=== PATIENT | female | born 1965 | race Caucasian/White ===

== ENCOUNTER 2018-03-15 19:02 | Emergency (ER) | payer OTHER ==
[2018-03-15 19:45] LABS: BASOPHILS # (AUTO) 0.1 10^3/uL (0.0-0.1); BASOPHILS % (AUTO) 1.1 %; EOSINOPHILS # (AUTO) 0.4 10^3/uL (0.0-0.7); EOSINOPHILS % (AUTO) 3.3 %; HGB - HEMOGLOBIN 14.8 g/dL (12.0-16.0); LYMPHOCYTES # (AUTO) 3.1 10^3/uL (1.5-3.5); LYMPHOCYTES % (AUTO) 24.6 %; MEAN CORPUSCULAR HEMOGLOBIN 29.9 pg (27.0-31.0); MEAN CORPUSCULAR HGB CONC 33.1 g/dL (32.0-36.0); MEAN CORPUSCULAR VOLUME 90.3 fL (81.0-99.0); MEAN PLATELET VOLUME 6.9 fL (7.9-10.8); MONOCYTES % (AUTO) 7.9 %; NEUTROPHILS % (AUTO) 63.1 %; PLT - PLATELET COUNT 310 10^3/uL (130-450); RED BLOOD COUNT 4.97 10^6/uL (4.20-5.40); RED CELL DISTRIBUTION WIDTH 13.5 % (12.0-15.0); WHITE BLOOD COUNT 12.7 x10^3/uL (4.8-10.8)
[2018-03-15 19:59] LABS: ALBUMIN 4.7 g/dL (3.2-5.5); ALBUMIN/GLOBULIN RATIO 1.4 (1.0-2.2); BILIRUBIN,TOTAL 0.4 mg/dL (0.2-1.0); CALCIUM 9.4 mg/dL (8.5-10.3); CREATININE 0.7 mg/dL (0.4-1.0); TOTAL PROTEIN 8.1 g/dL (6.7-8.2)
[2018-03-15] MEDS ORDERED: ALBUTEROL NEB 2.5 MG/3 ML INH STA (20:43)
--- NOTE | 2018-03-15 20:46 | ED Physician Documentation ---
History of Present Illness - Stated complaint Stated Complaint: CHEST TIGHTNING/WINDED - Chief complaint Chief Complaint: Cardiac - History obtained from History obtained from: Patient - History of Present Illness Timing: How many weeks ago (1) Pain level max: 0 Pain level now: 0 - Additonal information Additional information: Patient is a 52-year-old female presents to the emergency department with dyspnea for the past week. This has been intermittent, but constant for the past 12 hours or so. Worse with exertion and better with rest. Also states has mild chest tightness. No fevers. No cough. No rhinorrhea or congestion. No recent travel. No recent antibiotics. No recent surgery. No recent imm obilization Review of Systems Ten Systems: 10 systems reviewed and negative Constitutional: denies: Fever, Chills Ears: denies: Ear pain Nose: denies: Rhinorrhea / runny nose, Congestion Throat: denies: Sore throat Cardiac: denies: Pedal edema, Calf pain GI: denies: Abdominal Pain, Nausea, Vomiting, Diarrhea Skin: denies: Rash Musculoskeletal: denies: Neck pain, Back pain Neurologic: denies: Headache PD PAST MEDICAL HISTORY - Past Medical History Past Medical History: Yes Cardiovascular: Hypertension, High cholesterol Neuro: Peripheral neuropathy Other Past Medical History: spinal stimulator, stent to abd (R common iliac vein) - Past Surgical History /[employer]IC: Hysterectomy Cardiovascular: Vascular surgery - Present Medications Home Medications: Ambulatory Orders Medication Instructions Recorded Confirmed Albuterol Sulf [Ventolin Hfa 1 - 2 puffs INH Q4HR PRN #1 inhaler 03/15/18 Inhaler] Amlodipine Besylate 10 mg PO DAILY 03/15/18 Atorvastatin Calcium 20 mg PO DAILY 03/15/18 Baclofen 10 mg PO DAILY 03/15/18 Janument 03/15/18 Levothyroxine Sodium [Synthroid] 100 mcg PO DAILY 03/15/18 03/15/18 Lisinopril 5 mg PO DAILY 03/15/18 Neuropathic 03/15/18 Pantoprazole [Protonix] 40 mg PO DAILY 03/15/18 03/15/18 Pyridoxine HCl 50 mg PO DAILY 03/15/18 03/15/18 traMADol [Ultram] 50 mg PO PRN PRN 03/15/18 - Allergies Allergies/Adverse Reactions: Allergies Allergy/AdvReac Type Severity Reaction Status Date / Time acetaminophen Allergy Unknown Verified 12/11/18 20:44 [From Darvocet-N] amoxicillin Allergy Unknown Verified 03/15/18 20:44 ampicillin Allergy Unknown Verified 03/15/18 20:44 clindamycin Allergy Unknown Verified 03/15/18 20:44 erythromycin base Allergy Unknown Verified 03/15/18 20:44 nitrofurantoin Allergy Unknown Verified 03/15/18 20:44 [From Macrodantin] Penicillins Allergy Unknown Verified 03/15/18 20:44 propoxyphene Allergy Unknown Verified 03/15/18 20:44 [From Darvocet-N] Sulfa (Sulfonamide Allergy Unknown Verified 03/15/18 20:44 Antibiotics) tetracycline Allergy Unknown Verified 03/15/18 20:44 - Social History Does the pt smoke?: No Smoking Status: Former smoker Does the pt drink ETOH?: No Does the pt have substance abuse?: No - Immunizations Immunizations are current?: Yes PD ED PE NORMAL - Vitals Vital signs reviewed: Yes - General General: Alert and oriented X 3, No acute distress - HEENT HEENT: Moist mucous membranes - Neck Neck: Supple, no meningeal sign - Cardiac Cardiac: RRR, Strong equal pulses - Respiratory Respiratory: No respiratory distress, Other (Mildly diminished breath sounds bilaterally) - Abdomen Abdomen: Soft, Non tender, Non distended - Back Back: No spinal TTP - Derm Derm: Warm and dry - Extremities Extremities: No edema, No calf tenderness / cord - Neuro Neuro: Alert and oriented X 3 Results - Vitals Vitals: Vital Signs - 24 hr 03/15/18 03/15/18 03/15/18 19:23 20:11 21:06 Temperature 36.8 C Heart Rate 98 81 Respiratory 16 17 Rate Blood Pressure 138/84 H 140/90 H Blood Pressure 148/90 H [Right] O2 Saturation 98 97 03/15/18 03/15/18 03/15/18 21:32 22:12 22:30 Temperature Heart Rate 82 86 85 Respiratory 22 19 23 Rate Blood Pressure 111/48 L Blood Pressure [Right] O2 Saturation 97 Oxygen O2 Source Room air - EKG (time done) 1914 Rate: Rate (enter#) (90) Rhythm: NSR [place]: Normal Intervals: Normal [place] QRS: Normal Ischemia: Normal ST segments - Labs Labs: Laboratory Tests 03/15/18 03/15/18 03/15/18 19:37 19:37 19:37 WBC 12.7 H RBC 4.97 Hgb 14.8 Hct 44.9 MCV 90.3 MCH 29.9 MCHC 33.1 RDW 13.5 Plt Count 310 MPV 6.9 L Neut # (Auto) 8.0 H Lymph # (Auto) 3.1 Randolph # (Auto) 1.0 Eos # (Auto) 0.4 Baso # (Auto) 0.1 Absolute Nucleated RBC 0.00 Nucleated RBC % 0.0 Sodium 134 L Potassium 3.7 Chloride 102 Carbon Dioxide 24 Anion Gap 8.0 BUN 16 Creatinine 0.7 Estimated GFR (MDRD) 89 Glucose 176 H Calcium 9.4 Total Bilirubin 0.4 AST 36 ALT 58 Alkaline Phosphatase 76 Troponin I < 0.04 B-Natriuretic Peptide Total Protein 8.1 Albumin 4.7 Globulin 3.4 Albumin/Globulin Ratio 1.4 Lipase 31 03/15/18 19:37 WBC RBC Hgb Hct MCV MCH MCHC RDW Plt Count MPV Neut # (Auto) Lymph # (Auto) Randolph # (Auto) Eos # (Auto) Baso # (Auto) Absolute Nucleated RBC Nucleated RBC % Sodium Potassium Chloride Carbon Dioxide Anion Gap BUN Creatinine Estimated GFR (MDRD) Glucose Calcium Total Bilirubin AST ALT Alkaline Phosphatase Troponin I B-Natriuretic Peptide 26 Total Protein Albumin Globulin Albumin/Globulin Ratio Lipase - Rads (name of study) Chest x-ray Radiology: Prelim report reviewed, EMP read contemporaneously, See rad report (No acute abnormality) CT pulmonary angiogram Radiology: Prelim report reviewed, EMP read contemporaneously, See rad report (No pulmonary emboli) PD MEDICAL DECISION MAKING - ED course Complexity details: reviewed results, re-evaluated patient, considered differential, d/w patient, d/w family ED course: 52-year-old female with dyspnea of unclear etiology. Negative CT of the chest. No PE. No acute coronary syndrome. No CHF. She was given albuterol nebulizer and a DuoNeb treatment. This seemed to resolve her symptoms. She states that she did used to smoke when she was younger and had a nebulizer at that time but has not had to use anything since 2006. Will prescribe an inhaler for home and follow-up with her doctor. Patient counseled regarding signs and symptoms for which I believe and urgent re-evaluation would be necessary. Patient with good understanding of and agreement to plan and is comfortable going home at this time This document was made in part using voice recognition software. While efforts are made to proofread this document, sound alike and grammatical errors may occur. Departure - Departure Disposition: 01 Home, Self Care Clinical Impression: Dyspnea Qualifiers: Dyspnea type: shortness of breath Qualified Code(s): R06.02 - Shortness of breath Condition: Good Instructions: ED Dyspnea Shortness of Breath Follow-Up: Beverley Mason MD [Primary Care Provider] - Within 3 Days Prescriptions: Albuterol Sulf [Ventolin Hfa Inhaler] 1 - 2 puffs INH Q4HR PRN #1 inhaler PRN Reason: Shortness Of Air/Wheezing Comments: Use the albuterol as needed for difficulty breathing at home. Return if you worsen. Your laboratory tests, x-ray, CT scan and EKG do not reveal any acute abnormalities to explain your symptoms. Discharge Date/Time: 03/15/18 22:45
--- NOTE | 2018-03-15 20:55 | XRAY Report ---
Reason: soa/chest pressure Procedure Date: 03/15/2018 Accession Number: [id number] / [id number] Procedure: XR - Chest 1 View X-Ray CPT Code: 63356 FULL RESULT: EXAM: CHEST RADIOGRAPHY EXAM DATE: 03/15/2018 08:35 PM. CLINICAL HISTORY: Chest pressure and shortness of breath for about a week. Dizziness. COMPARISON: None. TECHNIQUE: 1 view. FINDINGS: Lungs/Pleura: No focal opacities evident. No pleural effusion. No pneumothorax. Mediastinum: Within exam limitations, the cardiomediastinal contour is normal. Other: No bony abnormality identified. IMPRESSION: Normal single view chest. [facility]
[2018-03-15] MEDS ORDERED: IOVERSOL 320 100 ML VIAL IVP ONE ×2 (21:10→21:54)
--- NOTE | 2018-03-15 21:56 | CT Report ---
Reason: dyspnea, worsening for past week. Procedure Date: 03/15/2018 Accession Number: [id number] / [id number] Procedure: CT - Chest Angio (PE) CPT Code: FULL RESULT: EXAM: CT ANGIOGRAM CHEST EXAM DATE: 03/15/2018 09:32 PM. CLINICAL HISTORY: Dyspnea, worsening for past week. COMPARISON: None. TECHNIQUE: Routine helical imaging was performed through the chest in the pulmonary arterial phase. IV Contrast: OPTI 320 80mL. Reconstructions: Coronal 3-D MIP reconstructions.Sagittal and coronal. In accordance with CT protocol optimization, one or more of the following dose reduction techniques were utilized for this exam: automated exposure control, adjustment of mA and/or KV based on patient size, or use of iterative reconstructive technique. FINDINGS: Pulmonary Arteries: Diagnostic quality: Suboptimal through the segmental arteries. Timing of contrast bolus limits assessment of segmental branch vessels. There is no evidence of central embolus. No right heart strain. Lungs/Pleura: No consolidation, nodules, or edema. No effusions or pneumothorax. Mediastinum: Normal heart size. There are coronary artery calcifications. No enlarged thoracic lymph nodes. Thoracic Aorta: Unremarkable. Upper Abdomen: The visualized portions of the upper abdominal organs demonstrate no acute abnormalities. There is a left adrenal adenoma. Other: None. IMPRESSION: 1. Study is limited for assessment of pulmonary embolus secondary to timing of contrast bolus. There is no evidence of large central embolus or right heart strain. Segmental branch vessels are inadequately opacified to exclude embolus. 2. Normal heart size. There are coronary artery calcifications. 3. There is no evidence of aortic dissection or aneurysm. 4. The lungs are clear. 5. There is a left adrenal adenoma. [facility]
[2018-03-15] MEDS ORDERED: IPRATROPIUM/ALBUTEROL 3 ML NEB INH STA (22:00)
[2018-03-15 22:13] VITALS: BP 111/48
== END 2018-03-15 22:45 | disposition home or self-care (01) ==
LOC: ED 19:02
DX: R06.02 Shortness of breath (principal); R07.89 Other chest pain; I10 Essential (primary) hypertension; Z87.891 Personal history of nicotine dependence
CPT/HCPCS: 36415; 71045; 71275; 80053; 83690; 83880; 84484; 85025; 93005; 94640; 99283; Q9967

== ENCOUNTER 2018-07-26 06:00 | Day surgery (SDC) | payer OTHER ==
[2018-07-26] MEDS ORDERED: LACTATED RINGERS 1,000 ML IV ONE (06:33)
--- NOTE | 2018-07-26 07:49 | ANESTHESIA ---
Pre-Anesthesia VS, & Labs - Diagnosis colon screening exam - Procedure colonoscopy Vital Signs: Temp Pulse Resp BP Pulse Ox 37.3 C 84 18 138/94 H 96 07/26/18 06:30 07/26/18 06:30 07/26/18 06:30 07/26/18 06:30 07/26/18 06:30 Height 5 ft 8 in Weight (kg) 111.13 kg Body Mass Index 35.4 - NPO >8 hours - Is Patient ?: No - Lab Results Current Lab Results: Laboratory Tests 07/26/18 06:43: POC Whole Bld Glucose 208 H Home Medications and Allergies Amlodipine Besylate 10 mg PO DAILY 03/15/18 Baclofen 10 mg PO DAILY PRN 03/15/18 Levothyroxine Sodium [Synthroid] 100 mcg PO DAILY 03/15/18 Lisinopril 5 mg PO DAILY 03/15/18 Pantoprazole [Protonix] 40 mg PO DAILY 03/15/18 traMADol [Ultram] 50 mg PO TID 03/15/18 Cetirizine HCl 10 mg PO DAILY PRN 05/06/18 Fluticasone/Salmeterol [Advair 100-50 Diskus] 1 each IH BID 05/06/18 Sertraline HCl [Zoloft] 100 mg PO DAILY 05/06/18 Sitagliptin Phos/Metformin HCl [Janumet 50-1,000 mg Tablet] 1 each PO BID 05/06/18 diphenhydrAMINE [Benadryl] 100 mg PO ONCE PRN 05/06/18 Allergies/Adverse Reactions: Allergies Allergy/AdvReac Type Severity Reaction Status Date / Time amoxicillin Allergy Hives Verified 05/06/18 10:45 ampicillin Allergy Hives Verified 05/06/18 10:45 clindamycin Allergy Hives Verified 05/06/18 10:45 erythromycin base Allergy Hives Verified 05/06/18 10:45 nitrofurantoin Allergy Hives Verified 05/06/18 10:45 [From Macrodantin] Penicillins Allergy Anaphylaxis Verified 05/06/18 10:45 propoxyphene Allergy Hives Verified 05/06/18 10:45 [From Darvocet-N] Sulfa (Sulfonamide Allergy Hives Verified 05/06/18 10:45 Antibiotics) tetracycline Allergy Hives Verified 02/01/19 10:45 Anes History & Medical History - Anesthetic History Anesthesia Complications: reports: No previous complications - Medical History Cardiovascular: reports: Hypertension, High cholesterol Pulmonary: reports: Other Gastrointestinal: reports: GERD, Other Urinary: reports: None Neuro: reports: Peripheral neuropathy Musculoskeletal: reports: Osteoarthritis, Fibromyalgia, Chronic back pain Endocrine/Autoimmune: reports: Type 2 diabetes, HyPOthyroidism Skin: reports: None Smoking Status: Former smoker - Surgical History Cardiothoracic: Vascular surgery Gynecologic: Hysterectomy Exam General: Other (patient sedated with 8mg versed and 200 mcg fentanyl prior to arrival. History obtained from EMR) Plan Anesthesia Type: MAC (Patient unable to tolerate procedure with conscious sedation. Assumed care for Monitored anesthesia care.) Consent for Procedure(s) Verified and Reviewed: Yes Code Status: Attempt Resuscitation ASA classification: 3-Severe systemic disease Is this case an emergency?: No
[2018-07-26] MEDS ORDERED: PROPOFOL 200 MG/20 ML VIAL IVP ONE (07:54)
[2018-07-26] MEDS ORDERED: MIDAZOLAM 2 MG/2 ML VIAL IVP ONE (08:00)
[2018-07-26] MEDS ORDERED: fentaNYL 250 MCG/5 ML VIAL IVP ONE (08:00)
[2018-07-26 08:32] VITALS: BP 135/88
--- NOTE | 2018-07-26 09:59 | PROCEDURE REPORT ---
DATE OF SERVICE: 07/26/2018 Physician: Jesus Simon MD PREOPERATIVE DIAGNOSIS: Screening. POSTOPERATIVE DIAGNOSIS: Normal colonoscopy. INDICATION FOR PROCEDURE: The patient is a 52-year-old woman presenting for her first screening colo noscopy. She did have one about 30 years ago; however. PROCEDURE IN DETAIL: The risks and benefits were explained to the patient, she agreed to the procedu re. She was taken to the operating room, given sedation. A timeout was performed and everyone in th e room agreed with the procedure. We inserted a well-lubricated colonoscope in the anal cavity and a dvanced into the cecum without much difficulty. The appendiceal orifice was identified. We slowly w ithdrew the colonoscope while insufflating. We inspected all mucosal surfaces on withdrawal, did not see any abnormalities. The scope was retroflexed at the anal verge, which showed slightly enlarged hemorrhoids internally. However, there are no other abnormalities on colonoscopy. The scope was the n withdrawn completely and the procedure terminated. The patient went to recovery in good condition. COMPLICATIONS: None. PLAN: To go home today and have repeat colonoscopy in 10 years. TD: 07/26/2018 08:30
== END 2018-07-26 06:01 | disposition home or self-care (01) ==
LOC: SDS 06:00
PROVIDERS: ATTEND Surgery
PROC: 0DJD8ZZ Inspection of Lower Intestinal Tract, Via Natural or Artificial Opening Endoscopic (ICD-10-PCS; principal; 2018-07-26 07:30)
DX: Z12.11 Encounter for screening for malignant neoplasm of colon (principal); I10 Essential (primary) hypertension; K21.9 Gastro-esophageal reflux disease without esophagitis; E78.00 Pure hypercholesterolemia, unspecified; E11.42 Type 2 diabetes mellitus with diabetic polyneuropathy; E03.9 Hypothyroidism, unspecified; Z87.891 Personal history of nicotine dependence
CPT/HCPCS: 45378; J3010; J7120

== ENCOUNTER 2018-09-30 08:27 | Outpatient (CLI) | payer OTHER ==
[2018-09-30] MEDS ORDERED: BUFFERED LIDOCAINE 10 ML SYRINGE ONE (08:39)
[2018-09-30] MEDS ORDERED: IOTHALAMATE MEGLUMINE 50 ML VIAL ONE (08:39)
--- NOTE | 2018-09-30 14:45 | CT Report ---
Reason: STRAIN OF MUSCLE AND TENDONS OF THE ROTATOR CUFF O Procedure Date: 09/30/2018 Accession Number: [id number] / [id number] Procedure: CT - UPPER EXTREMITY W - RT CPT Code: FULL RESULT: EXAM: RIGHT SHOULDER CT ARTHROGRAM WITH CONTRAST EXAM DATE: 09/30/2018 09:43 AM. CLINICAL HISTORY: Right shoulder pain. Strain of muscle and tendons of the rotator cuff. COMPARISON: UPPER EXTREMITY RIGHT W/ 09/30/2018 9:35 AM CHEST 1 VIEW 03/15/2018 8:24 PM. TECHNIQUE: Thin-section axial images were acquired of the shoulder after an arthrographic injection dictated under a separate exam. Post-processing: Oblique coronal and sagittal reformats. Other: None. In accordance with CT protocol optimization, one or more of the following dose reduction techniques were utilized for this exam: automated exposure control, adjustment of mA and/or KV based on patient size, or use of iterative reconstructive technique. FINDINGS: Bones: No fracture or bone lesion. Acromioclavicular Region: Minimal acromioclavicular joint osteoarthritis. Glenohumeral Joint: Mild glenohumeral osteoarthritis, with small osteophytes and mild subarticular sclerosis. Contrast has been injected into the subacromial and subscapular bursae. There is no appreciable contrast in the joint space. Musculature: Rotator cuff tear cannot be excluded. Other: The visualized lungs are unremarkable. No lymphadenopathy in the visualized axilla. IMPRESSION: 1. Extra-articular injection of contrast. Rotator cuff tear cannot be excluded. Unless contraindicated, MR shoulder without arthrogram can be utilized to assess the rotator cuff. 2. Mild glenohumeral osteoarthritis. [facility] MUSCULOSKELETAL RADIOLOGY SECTION
--- NOTE | 2018-09-30 16:30 | XRAY Report ---
Reason: STRAIN OF MUSCLE AND TENDONS OF THE ROTATOR CUFF O Procedure Date: 09/30/2018 Accession Number: [id number] / [id number] Procedure: FL - Arthrogram Needle Placement CPT Code: FULL RESULT: EXAM: RIGHT SHOULDER ARTHROGRAPHIC INJECTION WITH FLUOROSCOPIC GUIDANCE EXAM DATE: 09/30/2018 09:24 AM. CLINICAL HISTORY: Strain of muscle and tendons of the rotator cuff. COMPARISON: UPPER EXTREMITY RIGHT W/ 09/30/2018 9:37 AM. TECHNIQUE: The risks, benefits, and alternatives of the procedure were discussed with the patient. All questions were answered. Written and verbal consent were obtained. The glenohumeral joint was marked under fluoroscopy and prepped and draped in a sterile manner. Local anesthesia was performed with 1% lidocaine. A 22-gauge needle was then inserted into the glenohumeral joint. 10 mL of a solution containing 25% 1% lidocaine, 25% iodinated contrast, and 50% sterile saline was then injected. The needle was removed without immediate complication. Other: None. Fluoroscopy Time: 3 seconds. Number of Images: 7. FINDINGS: Bones and joints: No fracture or subluxation. Injection: Fluoroscopic images demonstrate needle placement and contrast circumferentially investing the glenohumeral joint. The needle was positioned multiple times with reinjecting yielding the same contrast pattern. Each injection was performed with the needle tip contacting bone. IMPRESSION: Fluoroscopic-guided arthrographic injection of the shoulder. Question adhesive capsulitis given intraprocedural findings as described above. This was discussed over the phone with the office of Beverley Mason. The following recommendation was made: If clinically indicated repeat arthrographic injection could be attempted. Recommend consideration for imaging of the shoulder by MRI at that time. The patient had related a history of having been told MRI was not an option due to a neurostimulator at the sacral level. The patient was able to produce exact documentation of the stimulator model which is MRI conditional and would be safe for imaging under correct conditions and a 1.5 Christie magnet. This could be performed at this location with the device turned off or in MRI mode as per bioprocess engineer recommendation. [facility]
== END 2018-09-30 08:28 | disposition home or self-care (01) ==
LOC: DI 08:27
PROVIDERS: ATTEND Family Medicine
DX: M19.011 Primary osteoarthritis, right shoulder (principal); S46.019A Strain of muscle(s) and tendon(s) of the rotator cuff of unspecified shoulder, initial encounter
CPT/HCPCS: 73201; 77002; Q9961